=== PATIENT | male | born 1970 | race Caucasian/White ===

== ENCOUNTER → 2020-06-25 | Outpatient (CLI) | payer BC ==
[~2020-06-25] MED LIST: ASPI325T11 PO; ATOR10TA60 PO; CITA20TA6 PO; FERR325T14 PO; MELO15TA23 PO; MULT-245 PO; OMEG1CAP68 PO; cbd oil TOP
[2020-06-25 10:05] LABS: BASO # 0.1 x10^3/uL (0.0-0.2); BASO % 1 % (0-3); EOS # 0.2 x10^3/uL (0.0-0.7); EOS % 3 % (0-3); HEMATOCRIT 44.3 % (39.0-53.0); HEMOGLOBIN 15.4 g/dL (13.0-17.5); LYMPH # 1.4 x10^3/uL (1.0-4.8); LYMPH % 29 % (24-48); MEAN CORPUSCULAR HEMOGLOBIN 32 pg (25-35); MEAN CORPUSCULAR HGB CONC 35 g/dL (31-37); MEAN CORPUSCULAR VOLUME 92 fL (79-100); MONO # 0.6 x10^3/uL (0.0-1.1); MONO % 12 % (0-9); NEUT # 2.7 x10^3/uL (1.8-7.7); NEUT % 55 % (31-73); PLATELET COUNT 182 x10^3/uL (140-400); RED BLOOD COUNT 4.83 x10^6/uL (4.30-5.70); RED CELL DISTRIBUTION WIDTH 12.9 % (11.5-14.5)
[2020-06-25 10:22] LABS: ALBUMIN 3.7 g/dL (3.4-5.0); CALCIUM 8.9 mg/dL (8.5-10.1); GFR 78.5
[2020-06-25 10:34] LABS: PROTHROMBIN TIME PATIENT 13.9 SEC (11.7-14.0)
--- NOTE | 2020-06-25 11:57 | EKG ---
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
--- NOTE | 2020-06-25 16:50 | RAD ---
XR CHEST 2V History: Reason: joint prehab class patient-hx hyperlipidemia-preop eval for knee replacemen / Spl. I nstructions: / History: Comparison: None. Findings: No consolidation or pleural effusion. Normal heart size. No pneumothorax. Impression: 1. No acute cardiopulmonary process. Electronically signed by: Alexandro Humphries DO (06/25/2020 4:47 PM) [id number]
== END ==
LOC: SURGPAT 12:38
PROVIDERS: ATTEND Orthopaedic Surgery
DX: Z01.818 Encounter for other preprocedural examination (principal); M17.11 Unilateral primary osteoarthritis, right knee; E78.5 Hyperlipidemia, unspecified
CPT/HCPCS: 36415; 71046; 80048; 82040; 82306; 83036; 85025; 85610; 85730; 86140; 87641; 93005

== ENCOUNTER → 2020-07-12 | Outpatient (CLI) | payer BC | LOC: LAB 11:13 | PROVIDERS: ATTEND Orthopaedic Surgery | DX: Z01.812 Encounter for preprocedural laboratory examination (principal); M17.11 Unilateral primary osteoarthritis, right knee; Z20.822 Contact with and (suspected) exposure to COVID-19 | CPT/HCPCS: U0003 ==

== ENCOUNTER 2020-07-16 07:10 | Observation (INO) | payer BC ==
--- NOTE | 2020-07-15 12:48 | PDOC1 ---
History and Physical Date of Admission Date of Admission 07/16/2020 Identification/Chief Complaint Chief Complaint Right knee osteoarthritis pain Source Source: Chart review, Patient History of Present Illness History of Present Illness 48 year old with right knee osteoarthritis and pain, a mutual patient with Dr. SHIVANI Zhang. History of Orthovisc injections. In 2019 was still playing ultimate Frisbee and soccer, and as a result, did not want knee replacement previously. At this point, he reports that his knee pain has significantly progressed from prior. His knee pain is severe and impacting his ability to participate in desired activities or stay active. He's interested in knee replacement. He is a past patient whom I've been following for at least 7 years, with nonoperative treatment for his osteoarthritis. History of ACL reconstruction surgery in the . He states that walking is painful now. Past Medical History Cardiovascular: HTN Past Surgical History Past Surgical History ACL reconstruction Family History Family History father HTN Family History: Hypertension Social History Smoke: Quit ALCOHOL: none Current Medications Current Medications Current Medications Fentanyl Citrate (Fentanyl 2ml Vial) 25 mcg PRN Q5MIN PRN IVP MILD PAIN 1-3; Start 07/16/20 at 06:00; Stop 07/17/20 at 05:59 Fentanyl Citrate (Fentanyl 2ml Vial) 50 mcg PRN Q5MIN PRN IVP MODERATE PAIN 4- 6; Start 07/16/20 at 06:00; Stop 07/17/20 at 05:59 Morphine Sulfate (Morphine Sulfate) 1 mg PRN Q10MIN PRN IVP SEVERE PAIN 7-10; Start 07/16/20 at 06:00; Stop 07/17/20 at 05:59 Ringer's Solution 1,000 ml @ 30 mls/hr Q24H IV ; Start 07/16/20 at 06:00; Stop 07/16/20 at 17:59 Hydromorphone HCl (Dilaudid) 0.5 mg PRN Q10MIN PRN IVP SEVERE PAIN 7-10, 2nd CHOICE; Start 07/16/20 at 06:00; Stop 07/17/20 at 05:59 Prochlorperazine Edisylate (Compazine) 5 mg PACU PRN PRN IVP NAUSEA, MRX1; Start 07/16/20 at 06:00; Stop 07/17/20 at 05:59 Meloxicam (Mobic) 15 mg 1X PREOP PRN PO PRIOR TO PROCEDURE; Start 07/16/20 at 06:00; Stop 07/16/20 at 18:00 Acetaminophen (Tylenol) 1,000 mg 1X PREOP PRN PO PRIOR TO PROCEDURE; Start 07/16/20 at 06:00; Stop 07/16/20 at 18:00 Cefazolin Sodium/ Dextrose 50 ml @ 100 mls/hr 1X PREOP PRN IV PRIOR TO PROCEDURE; Start 07/16/20 at 06:00; Stop 07/16/20 at 18:00 Morphine Sulfate 5 mg/Ketorolac Tromethamine 30 mg/Ropivacaine 60 ml/Epinephrine HCl 0.5 mg/Sodium Chloride 100 ml @ 100 mls/hr 1X PERIOP ONCE INT ART ; Start 07/16/20 at 06:00; Stop 07/16/20 at 06:59 Tranexamic Acid 50 ml @ 50 mls/hr 1X PERIOP ONCE INJ ; Start 07/16/20 at 06:00; Stop 07/16/20 at 06:59 Tranexamic Acid 50 ml @ 50 mls/hr 1X PERIOP ONCE INJ ; Start 07/16/20 at 08:00; Stop 07/16/20 at 08:59 Aspirin (Bautista Aspirin) 325 mg BID PO ; Start 07/16/20 at 21:00 Active Scripts Active Reported Multi Vitamin Daily (Multivitamin) 1 Each Tablet 1 Each PO DAILY [cbd oil] 1 Tate TOP PRN DAILY PRN Fish Oil 500 Mg Softgel (Charlotte-3/Dha/Epa/Fish Oil) 1 Each Capsule 1 Each PO DAILY Atorvastatin Calcium 10 Mg Tablet 10 Mg PO HS PRN Citalopram Hbr (Citalopram Hydrobromide) 20 Mg Tablet 20 Mg PO DAILY Allergies Allergies: Coded Allergies: celecoxib (Verified Adverse Reaction, Intermediate, Itching, 06/27/20) ROS Review of System OPHTHALMOLOGY: Blurred vision none. Double vision denies. Change in vision none. ENT: Hearing loss none. Change in voice denies. Rhinorrhea none. CARDIOLOGY: Palpitations none. Shortness of breath denies. Chest pain denies. CONSTITUTIONAL: Fever denies. Chills denies. Weight gain denies. Weakness none. weight loss denies. Fatigue none. GASTROENTEROLOGY: Diarrhea denies. Vomiting none. Dysphagia none. UROLOGY: Voiding normally yes. Hematuria none. MUSCULOSKELETAL: Chronic back or neck pain denies. Swelling of the feet, hands, ankles and /or legs denies. Joint pain reports. Tingling/numbness no. DERMATOLOGY: Rash denies. Lumps none. NEUROLOGY: Dizziness/lightheadedness denies. Double vision, temporary blindness denies. Tingling/numbness none. PSYCHOLOGY: Change in mood or personality denies. Memory loss none. ENDOCRINOLOGY: Obesity denies. Fatigue none. Weight loss none. HEMATOLOGY/LYMPH: Hepatitis denies. Enlarged lymph nodes denies. Physical Exam General: Alert, Cooperative HEENT: Atraumatic Lungs: Normal air movement Heart: RRR Abdomen: Soft Extremities: No cyanosis, No edema, Normal pulses, Other (The RIGHT knee shows a mildly antalgic gait. There is varus malalignment. No masses. No detectable effusion. Tenderness on the joint lines. Range of motion is 0-120 degrees. There is crepitus with range of motion, and pain at the extremes of motion. The knee is stable to varus and valgus stress without subluxation or laxity. Muscle strength is slightly weak for the quadriceps 4+/5 which may be due to pain or avoidance, and does not seem neurogenic, and the muscle tone and bulk is slightly decreased. The hamstring strength is 5/5. The skin shows a well healed anterior scar from past ACL reconstruction but is otherwise normal with no other scars, rashes, lesions or ulcers. Light touch sensation is intact. No edema and no varicosities. Dorsalis pedis pulse is intact and capillary refill is normal. ) Skin: No breakdown, No significant lesion Neuro: Normal speech, Sensation intact Images Images Imaging: Knee 3 VWS, right Notes :IRVIN PAREDES 06/19/2020 01:18:55 PM EXPLOSIVE OPERATOR FUSE > Report reviewed and images independently reviewed. The right knee has [id number] contact medially with osteophyte formation, sclerosis, varus malalignment, possible deformity of bone contour of the medial tibia, and osteophytes are present in all 3 compartments. There are retained metallic interference screws in the femur and tibia consistent with two-incision anterior cruciate ligament reconstruction. This appears to be posttraumatic osteoarthritis of the left knee has very mild degenerative changes. These are Kellgren-Jasper grade 3 osteoarthritis changes of the right knee. [facility] [address] [place] [address] IMAGING REPORT Signed PATIENT: OTNA BENOIT ACCOUNT: [id number] : 1970 LOCATION: [facility] AGE: 50 SEX: M EXAM STATUS: PRE CLI ORD. PHYSICIAN: IRVIN PAREDES MD REASON: RT KNEE PAIN PROCEDURE: KNEE STANDING BILAT AP XR KNEE_RT 1-2 VIEWS, XR KNEE_AP BILAT STANDING 06/14/2020 10:50 AM INDICATION: Right knee pain COMPARISON: 04/25/2019 TECHNIQUE: 3 views of the right knee including a standing comparison view of the left knee provided. FINDINGS/ IMPRESSION: 1. No acute fracture or dislocation. 2. ACL repair postsurgical changes are identified. No significant lucency surrounding the hardware. Hardware appears in similar position compared to prior examination from 04/25/2019. 3. There is severe medial femorotibial joint space narrowing with marginal osteophytosis and subcortical sclerosis compatible with severe osteoarthrosis. Mild lateral femorotibial joint space narrowing and mild patellofemoral osteoarthrosis. Findings are stable. 4. Mild medial femorotibial joint space narrowing of the left knee compatible with mild osteoarthrosis. Electronically signed by: Pascual Wade MD (06/14/2020 5:15 PM) [id number] DICTATED and SIGNED BY: PASCUAL WADE MD DATE: 06/14/20 1713 VTE Prophylaxis Ordered VTE Prophylaxis Devices: Yes VTE Pharmacological Prophylaxi: Yes Assessment/Plan Assessment/Plan Post-traumatic osteoarthritis of right knee - M17.31 He has severe osteoarthritis of the right knee, which is posttraumatic and he has a history of ACL reconstruction of this right knee with retained hardware. There are qclv-fj-vsyq changes. He has tried nonoperative treatment including Orthovisc injections and other nonoperative treatment. Despite that he has daily symptoms. We reviewed his x-rays together and discussed the natural history of the condition as well as the risks, benefits, and alternatives to treatment. Given his failure of more conservative measures with continued severe pain and loss of function, my recommendation is surgery. Plan for right total knee arthroplasty. We discussed the potential risks of infection, neurovascular injury, fracture, bleeding, blood clots, malalignment, need for revision surgery, or other potential surgical or anesthetic complications. I recommended the robotic instrumentation and we discussed my reasoning. In addition, we went over his need for dental antibiotic prophylaxis, as well as postoperative expectations including residual numbness and his possible eventual need for revision at his younger age. All of his questions were answered and he desires to proceed with total knee replacement. Justifications for Admission Other Justification IRVIN PAREDES MD Jul 15, 2020 12:48
[~2020-07-16] VITALS: Ht 180.3 cm; Wt 93.9 kg
[~2020-07-16 07:10] MED LIST changes: +ACETAMINOPHEN 500 MG TABLET PO PRN; -ASPI325T11 PO; +BUPIVACAINE-EPI 0.25% 30 ML VIAL KIT. ONE; -FERR325T14 PO; +HYDROmorphone 2 MG/ML VIAL IVP PRN; +IV RINGERS,LACTATED 1000ML 1,000 ML IV SCH; -MELO15TA23 PO; +MELOXICAM 7.5 MG TABLET PO PRN; +MORPHINE SULFATE 2 MG/ML VIAL. IVP PRN; +PROCHLORPERAZINE 10 MG/2 ML VIAL. IVP PRN; +TOBRAMYCIN POWDER 1.2 GM VIAL. ONE; +TRANEXAMIC ACID 1,000 MG in IV NS 50ML -- 1ST BAG INJ ONE; +TRANEXAMIC ACID in NS IVPB 50 ML ONE; +TV=100ml MORPHINE 5 MG, KETOROLAC 30 MG, ROPIVacaine 0.5% PF 60 ML, EPINEPH... INT ART ONE; +VANCOMYCIN 1 GM VIAL. ONE; +fentaNYL PF VIAL 100 MCG/2 ML VIAL IVP PRN
[2020-07-16] MEDS ORDERED: FERR325T14 PO (07:40)
[2020-07-16] MEDS ORDERED: MELO15TA23 PO (07:41)
[2020-07-16] MEDS ORDERED: TRANEXAMIC ACID 1,000 MG in IV NS 50ML -- 2ND BAG INJ ONE (08:00)
[2020-07-16] MEDS ORDERED: VANCOMYCIN 1 GM VIAL. ONE (08:40)
[2020-07-16] MEDS ORDERED: fentaNYL PF VIAL 250 MCG/5 ML VIAL ONE (08:52)
[2020-07-16] MEDS ORDERED: PROPOFOL 10 MG/ML (20ML) VIAL. IV ONE (08:52)
[2020-07-16] MEDS ORDERED: LIDOCAINE 2% PF 5 ML VIAL. ONE (08:52)
[2020-07-16] MEDS ORDERED: DEXAMETHASONE SOD PHOS 4 MG/ML VIAL ONE (08:56)
[2020-07-16] MEDS ORDERED: ONDANSETRON PF 4 MG/2 ML VIAL. ONE (08:56)
[2020-07-16] MEDS ORDERED: TRANEXAMIC ACID in NS IVPB 50 ML ONE (11:16)
[2020-07-16] MEDS ORDERED: HYDROmorphone 2 MG/ML VIAL ONE (11:30)
[2020-07-16] MEDS ORDERED: SEVOFLURANE > 120 MINUTES. IH ONE (11:30)
--- NOTE | 2020-07-16 12:07 | PDOC4 ---
Operative Note Operative Note Date of Procedure: July 16, 2020 Pre-Op Diagnosis: Post-traumatic osteoarthritis of right knee - M17.31 Post-Op Diagnosis: same Procedure: right total knee arthroplasty with patella resurfacing, robotic assisted, and hardware removal CPT 96375 Surgeon: Irvin Petersen MD School Psychology Professor: KAYLA Albarado Anesthesia: General EBL: 150 mL Specimens Obtained: right knee bone and soft tissue Complications: none Drains: none Tourniquet time: 88 Minutes Tourniquet Pressure: 300 mm Hg Indications for Procedure: Knee arthritis pain, affecting quality of life, unrelieved by nonoperative management Findings: Severe osteoarthritis with bone on bone contact medially with full thickness cartilage loss in the patellofemoral and lateral compartments, retained tibial screw from ACL surgery required removal for placement of the tibial implant. The femoral ACL interference screw was never seen and is retained. Implants: Gomez [employer] Nephew Journey II Total Knee System, Size 5 right bicruciate stabilized Journey II BCS Oxinium femoral component, size 5 right Journey nonporous tibial baseplate, size 5-6 12 mm right Journey II BCS XLPE articular insert, 35 mm oval Suzanne II resurfacing patellar component Procedure in Detail: The patient was identified in the preoperative holding area, and the correct right lower extremity was marked by me. The patient was taken to the operating room where the patient was anesthetized by the Department of Anesthesia. Preoperative antibiotics were given intravenously. Tranexamic acid 1 g was given intravenously for intraoperative hemostasis. A "time-out" procedure was performed. The patient was positioned supine on the operative table with a tourniquet on the upper right thigh. A right hip bump and heel bump were attached to the operating table for later intraoperative positioning. The right lower limb was thoroughly scrubbed, then sterile Chloraprep solution was applied, and the limb was draped in sterile fashion. The operating team wore exhaust ventilated hoods with [employer] Personal Protection Toga Zippered Peel-Away protection system. An impervious stockinet and an adhesive drape were used such that the skin was entirely covered. The limb was exsanguinated with an Esmarch bandage, and the tourniquet was inflated. A midline skin incision was made with a scalpel using the patella and tibial tubercle as landmarks. Electrocautery was used for hemostasis. My drafter assistant used rake retractors and a laparotomy sponge. A medial parapatellar arthrotomy incision was used with extension into the distal quadriceps tendon. The patella was retracted laterally and Hohmann retractors were now used by my drafter assistant. Excess synovium, the menisci, and the cruciate ligaments were resected sharply. A periarticular multimodal ropivacaine anesthetic injection was used in the suprapatellar pouch and distal quadriceps muscle. The patella was everted and exposed. The patella thickness was measured with a caliper, and then cut freehand with a saw, using caliper measurements to assess the resection. The lateral retinaculum was partially released from the lateral patella using electrocautery. Rongeurs were used to make sure there were no remaining exposed patellar osteophytes medially or laterally. The patella was sized, and then drilled for an oval three-peg patella component. The tibial tracker array for the CORI system was applied to the tibial crest four finger breadths below the tibial tubercle, using percutaneous incisions and bicortical pins. The femoral tracker array was applied outside of the original incision using two separate stab incisions using bicortical pins. Checkpoint verification pins were applied to the femur and tibia. Using the point probe, the medial and lateral malleoli were localized and the locations were stored. The center of the tibia was noted at the anterior cruciate ligament insertion and stored. The center of the femur was marked at the intersection of Whitesidess line with the transepicondylar axis. The hip center calculation was performed with range of motion of the hip. The femur neutral position was identified, and simulated weightbearing was performed with axial compression on the foot. Range of motion without stress was performed and the data collected. Range of motion with valgus stress, and range of motion with varus stress data collection was also performed. Rotational references include the Whitesidess line, and the trans-epicondylar axis. The femoral articular surface was now mapped in 3 dimensions using the point probe and digital data collected. The tibial condyle articular surfaces and cortical edges were mapped in 3 dimensions using the point probe including the medial and lateral tibial plateau. Implant planning was now performed on-screen with manipulation of the implant sizes, cut thicknesses and gaps, component rotation, component flexion/extension and component varus/valgus until satisfactory ligament balance, alignment and stability of the knee was expected throughout the range of motion. A medial release was required, using a 10 blade scalpel, and a Woodward elevator to elevate the medial structures from the upper medial tibia. The medial release was performed in two stages to achieve satisfactory coronal plane balance according to the stress testing on the CORI. My drafter assistant held a Hohmann retractor, a medial Z-retractor, and an [place] retractor to protect the medial and lateral collateral ligaments, the patellar tendon, the skin and the other soft tissues. The point probe was used to confirm the location of the checkpoint verification pins. The distal femoral surface was now prepared using CORI handpiece for bone removal to the previously planned distal femoral resection. The crosshairs at the pin locations were marked by using a mallet and the point probe for definitive location. A 5-in-1 Journey II cutting guide was then applied and the position was checked with the virtual neil wing from the CORI to ensure proper placement as the pins were applied. The posterior, anterior, and all chamfer cuts were made with the oscillating saw. Excess bone was removed with an osteotome and rongeurs. The tibial cutting guide was applied, positioned using the CORI virtual neil wing, and secured to the upper tibia using three pins at the previously planned location. The virtual neil wing was used to confirm the resection depth, slope and coronal alignment. The upper tibia was cut made with an oscillating saw. My drafter assistant held Hohmann retractors and a posterior cruciate ligament retractor to protect the medial and lateral collateral ligaments, the patellar tendon, the skin, the peroneal nerve and the other soft tissues. The tibial interference screw tip was now exposed, and would interfere with placement of the tibial implant. I used a K wire and a nitinol wire, from the joint surface, through the tip of the screw, to localize the distal cortical insertion point of the screw. An osteotome was used at that cortex location, and the screw head was exposed. A screwdriver was then used over the K-wire, and as the screwdriver was inserted into the screw, the screw loosened and came loose from the bone and was finally removed. The screw removal procedure took about 20 minutes. The upper tibia was sized with a trial baseplate. The posterior compartment was cleared of osteophytes and loose bodies. The periarticular anesthetic injection was used in the posterior compartment. The box cut for a posterior stabilized component was made. A preliminary reduction was performed with a trial femur, trial tibial baseplate and trial polyethylene. The CORI system was used to confirm range of motion, and postoperative stressed gap assessment. The stability was assessed using different thicknesses of tibial articular surface to find satisfactory stability and good range of motion. The rotation of the tibial component was marked on the upper tibia. Final trial reduction was now performed verifying patella tracking and tibiofemoral stability and alignment. The bone pins and tracker arrays were removed, and the checkpoint verification pins were removed. The tibia preparation was completed with a drill, saw, and fin punch at the previously noted rotation. The final implants were verified and opened. Outer gloves were changed by the operating team. Betadine lavage was used. The bone cuts were irrigated with saline using the ThrowMotion InterPulse device and then dried with suction and laparotomy sponges. Two packages of Gomez + Nephew Rally HV bone cement were mixed in powdered form with Vancomycin 1gm and Tobramycin 1.2 gm, and then vacuum-mixed with the monomer, and placed into a cement gun. The cut surfaces of the bone were thoroughly dried with suction and with laparotomy sponges for cement interdigitation. The final components were cemented into place. Laparotomy sponge was held over the anterior tibial defect from the screw removal, to maintain cement pressure in this location and maintain a soft flat cement contour along the anterior tibial defect. The knee was kept at full extension while the cement hardened, and excess cement was removed. Tranexamic acid 1 g was redosed intravenously for additional intraoperative hemostasis. The tourniquet was released, and electrocautery was used for hemostasis. A final periarticular anesthetic injection was used for pain relief. The bone pin sites on the tibial crest were closed with #3-0 Nylon sutures. A final check of [id number] and stability was made, and the polyethylene implant final size was chosen. The polyethylene implant was secured to the tibial baseplate, and the knee was reduced a final time and range of motion and stability was confirmed. Thorough irrigation was used. Topical Vancomycin 1 gm was used during the closure. The arthrotomy was closed with interrupted vmlyet-ro-fyuot #1 Vicryl suture. The subcutaneous tissues were approximated initially with #2-0 Vicryl inverted interrupted sutures by my drafter assistant. Next the subcuticular layer was approximated in a running fashion with #3-0 STRATAFIX suture by my drafter assistant. The skin incision was then covered and reinforced by my drafter assistant with Acticoat, followed by a DANIAL single use negative pressure wound therapy dressing Soft roll and an Miguel wrap were applied. Needle and sponge counts were correct. There were no apparent complications. The patient returned to the recovery room in stable condition. IRVIN PETERSEN MD Jul 16, 2020 12:07
[2020-07-16] MEDS ORDERED: PROCHLORPERAZINE 5 MG TABLET. PO PRN (12:15)
[2020-07-16] MEDS ORDERED: CALCIUM CARBONATE 500 MG TAB.CHEW PO PRN (12:15)
[2020-07-16] MEDS ORDERED: DEXTROSE 50% 25 GM / 50ML DISP.SYRIN. IV PRN (12:15)
[2020-07-16] MEDS ORDERED: 0.9 % SODIUM CHLORIDE 10 ML DISP.SYRIN. IV PRN (12:15)
[2020-07-16] MEDS ORDERED: MORPHINE SULFATE 4 MG/ML VIAL. IVP PRN (12:15)
[2020-07-16] MEDS ORDERED: ZOLPIDEM 5 MG TABLET. PO PRN (12:15)
[2020-07-16] MEDS ORDERED: IV NORMAL SALINE 1000ML BAG 1,000 ML IV SCH (12:15)
[2020-07-16] MEDS ORDERED: fentaNYL PF VIAL 100 MCG/2 ML VIAL IVP PRN (12:15)
[2020-07-16] MEDS ORDERED: METOCLOPRAMIDE HCL 10 MG/2 ML VIAL. IVP PRN (12:15)
[2020-07-16] MEDS ORDERED: diphenhydrAMINE 50 MG/ML VIAL IVP PRN (12:15)
[2020-07-16] MEDS ORDERED: oxyCODONE/APAP 5/325 1 TAB TABLET PO PRN (12:45)
--- NOTE | 2020-07-16 12:56 | RAD ---
EXAM: Right knee, 2 views. HISTORY: Arthroplasty. COMPARISON: 06/14/2020 FINDINGS: 2 views of the right knee are obtained. There is a right knee arthroplasty in expected posi tion. There are track sullivan within the distal femur and proximal tibia due to prior instrumentation. There is soft tissue gas and a joint effusion due to recent surgery. There is a corticated ossicle al nasreen the superior aspect of the anterior tibial tubercle likely due to prior anterior cruciate ligamen t surgery. There is enthesopathy along the patella. IMPRESSION: Right knee arthroplasty in expected position. Electronically signed by: Sarah Moore MD (07/16/2020 12:54 PM) [id number]
[2020-07-16 14:01] VITALS: BP 133/87
--- NOTE | 2020-07-16 14:18 | NUR ---
received from recovery. he is alert and oriented . at bedside. he has good motion, sensation and pulses lower extremities. he denies pain at this time ; maybe a "1".
[2020-07-16 14:30] VITALS: BP 105/66
[2020-07-16 15:00] VITALS: BP 108/69
[2020-07-16 15:30] VITALS: BP 112/68
--- NOTE | 2020-07-16 16:04 | NUR ---
[facility] was down again--please see paper chart for medications
[2020-07-16 19:00] VITALS: BP 127/76
[2020-07-16] MEDS: ASPIRIN 325 MG TABLET PO SCH (20:46)
[2020-07-16] MEDS: ASPIRIN ENTERIC COATED 325 MG TABLET.DR. PO SCH (20:47)
[2020-07-16] MEDS: ONDANSETRON ODT 4 MG TAB.RAPDIS. PO SCH (20:47)
[2020-07-16] MEDS: ONDANSETRON PF 4 MG/2 ML VIAL. IVP SCH (20:47)
[2020-07-16] MEDS: oxyCODONE/APAP 5/325 1 TAB TABLET PO PRN (21:57)
[2020-07-16 22:40] VITALS: BP 110/73
[2020-07-17 03:00] VITALS: BP 122/65
[2020-07-17] MEDS: oxyCODONE/APAP 5/325 1 TAB TABLET PO PRN ×2 (03:59→20:24)
[2020-07-17] MEDS: ONDANSETRON ODT 4 MG TAB.RAPDIS. PO SCH ×2 (04:00)
[2020-07-17] MEDS: ONDANSETRON PF 4 MG/2 ML VIAL. IVP SCH ×2 (04:00)
[2020-07-17] MEDS ORDERED: MAGNESIUM HYDROXIDE 2,400 MG/30 ML ORAL.SUSP. PO PRN (06:00)
[2020-07-17 09:59] LABS: HEMOGLOBIN 13.7 g/dL (13.0-17.5)
[2020-07-17] MEDS ORDERED: IV NORMAL SALINE 500ML BAG 500 ML IV ONE (10:30)
[2020-07-17 11:05] VITALS: BP 105/71
[2020-07-17] MEDS ORDERED: ONDANSETRON PF 4 MG/2 ML VIAL. IVP PRN (12:00)
[2020-07-17] MEDS ORDERED: ONDANSETRON ODT 4 MG TAB.RAPDIS. PO PRN (12:00)
[2020-07-17] MEDS ORDERED: IV NORMAL SALINE 1000ML BAG 1,000 ML IV SCH (13:00)
--- NOTE | 2020-07-17 13:58 | RAD ---
EXAM: Right lower extremity venous Doppler sonogram. HISTORY: Pain and swelling. TECHNIQUE: Cuevas scale and color Doppler sonographic evaluation of the right lower extremity veins wit h spectral waveform analysis was performed. FINDINGS: There is normal color flow, normal compressibility and there are normal spectral waveforms in the common femoral, superficial femoral, popliteal, posterior tibial and greater saphenous veins. IMPRESSION: No Doppler evidence of lower extremity deep venous thrombosis. Electronically signed by: Sarah Moore MD (07/17/2020 1:56 PM) [id number]
--- NOTE | 2020-07-17 14:28 | NUR ---
[facility] see [facility] chart for todays' assessments, medications and vs and activities
[2020-07-17 15:15] VITALS: BP 120/69
--- NOTE | 2020-07-17 15:48 | EKG ---
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
[2020-07-17] MEDS ORDERED: BISACODYL 10 MG SUPP.RECT. PR PRN (16:00)
[2020-07-17] MEDS ORDERED: FLU VACC QS 2020-21(6MOS+)/PF 0.5 ML SYRINGE. VAX IM ONE (17:00)
[2020-07-17 18:11] VITALS: BP 154/77
[2020-07-17] MEDS: ASPIRIN 325 MG TABLET PO SCH (20:14)
[2020-07-17] MEDS: ASPIRIN ENTERIC COATED 325 MG TABLET.DR. PO SCH (20:15)
[2020-07-18] MEDS: oxyCODONE/APAP 5/325 1 TAB TABLET PO PRN ×4 (00:27→13:22)
[2020-07-18 06:18] VITALS: BP 124/74
--- NOTE | 2020-07-18 08:25 | NUR ---
Doing well this am. No c/o dizziness or light headiness. BP this am 145/82 with heart rate 79. Tolerated breakfast and drinking plenty of fluids. Cont. monitor.
[2020-07-18] MEDS: CITALOPRAM 20 MG TABLET. PO SCH ×2 (08:45→08:51)
[2020-07-18] MEDS: MULTIVITAMIN with MINERAL TABLET. PO SCH ×2 (08:50→08:51)
[2020-07-18] MEDS: MELOXICAM 7.5 MG TABLET PO SCH ×3 (08:50→15:12)
[2020-07-18] MEDS: ATORVASTATIN CALCIUM 10 MG TABLET. PO SCH ×2 (08:51→15:11)
[2020-07-18] MEDS: SENNOSIDES/DOCUSATE 8.6/50MG TABLET. PO SCH ×2 (08:51→15:10)
[2020-07-18] MEDS: ASPIRIN 325 MG TABLET PO SCH (08:52)
[2020-07-18 10:33] LABS: HEMATOCRIT 39.5 % (39.0-53.0); HEMOGLOBIN 13.8 g/dL (13.0-17.5)
--- NOTE | 2020-07-18 13:54 | PDOC ---
PROGRESS NOTES Date of Service DATE: 07/18/20 TIME: 13:51 Subjective Subjective Notes yesterday were on paper due to [employer] being down. He had a syncopal episode yesterday. He feels well today. Doppler was negative for DVT. Objective Vital Signs Vital Signs Date Time Temp Pulse Resp B/P (MAP) Pulse Ox O2 Delivery O2 Flow Rate FiO2 07/18/20 13:22 Room Air 07/18/20 06:18 98.7 78 16 124/74 (91) 96 98.7 07/16/20 12:50 10 Physical Exam Calf soft and nontender. Spotty dressing only on the DANIAL. Active range of motion 15 to 90 degrees. Labs Laboratory Tests Test 07/17/20 09:30 07/18/20 09:30 Hemoglobin 13.7 g/dL (13.0-17.5) 13.8 g/dL (13.0-17.5) Hematocrit 39.0 % (39.0-53.0) 39.5 % (39.0-53.0) Mean Corpuscular Hemoglobin Concent 35 g/dL (31-37) 35 g/dL (31-37) Laboratory Tests Test 07/18/20 09:30 Hemoglobin 13.8 g/dL (13.0-17.5) Hematocrit 39.5 % (39.0-53.0) Mean Corpuscular Hemoglobin Concent 35 g/dL (31-37) Imaging Report reviewed and images independently reviewed. Satisfactory TKA without complications. [facility] [address] [place] [address] IMAGING REPORT Signed PATIENT: TONA BENOIT ACCOUNT: [id number] : 1970 LOCATION: SURG AGE: 50 SEX: M EXAM STATUS: REG [facility] [facility]. PHYSICIAN: IRVIN PAREDES MD REASON: POST OP PROCEDURE: KNEE RIGHT 2V EXAM: Right knee, 2 views. HISTORY: Arthroplasty. COMPARISON: 06/14/2020 FINDINGS: 2 views of the right knee are obtained. There is a right knee arthroplasty in expected position. There are track sullivan within the distal femur and proximal tibia due to prior instrumentation. There is soft tissue gas and a joint effusion due to recent surgery. There is a corticated ossicle along the superior aspect of the anterior tibial tubercle likely due to prior anterior cruciate ligament surgery. There is enthesopathy along the patella. IMPRESSION: Right knee arthroplasty in expected position. Electronically signed by: Sarah Ordonez MD (07/16/2020 12:54 PM) [email or web address] DICTATED and SIGNED BY: SARAH ORDONEZ MD DATE: 07/16/20 [id number] PATIENT: TONA BENOIT ACCOUNT: [id number] : 1970 LOCATION: [address] [place] [address] AGE: 50 SEX: M EXAM STATUS: ADM IN ORD. PHYSICIAN: IRVIN PAREDES MD REASON: RT LEG SWELLING; S/P RT KNEE REPLACEMENT 05/15/21 PROCEDURE: VENOUS LOWER EXTREMITY RIGHT EXAM: Right lower extremity venous Doppler sonogram. HISTORY: Pain and swelling. TECHNIQUE: Cuevas scale and color Doppler sonographic evaluation of the right lower extremity veins with spectral waveform analysis was performed. FINDINGS: There is normal color flow, normal compressibility and there are normal spectral waveforms in the common femoral, superficial femoral, popliteal, posterior tibial and greater saphenous veins. IMPRESSION: No Doppler evidence of lower extremity deep venous thrombosis. Electronically signed by: Sarah Ordonez MD (07/17/2020 1:56 PM) [email or web address] DICTATED and SIGNED BY: SARAH ORDONEZ MD DATE: 07/17/20 [id number] 0 Assessment Assessment POD#2 after total knee arthroplasty. Syncopal episode yesterday but feels well today. Plan Plan of Care Doing well. Discharge to home today. Outpatient physical therapy. Aspirin for DVT prophylaxis. Office follow-up next week. Justicifation of Admission Dx: Justifications for Admission: Justification of Admission Dx: N/A IRVIN PAREDES MD Jul 18, 2020 13:54
--- NOTE | 2020-07-18 13:59 | PDOC3 ---
Discharge Summary Visit Information Date of Admission: Jul 16, 2020 Date of Discharge: Jul 18, 2020 Final Diagnosis Unilateral traumatic osteoarthritis right knee Brief Hospital Course Allergies Allergies Coded Allergies Type Severity Reaction Last Updated Verified celecoxib Adverse Reaction Intermediate Itching 06/27/20 Yes Vital Signs Vital Signs Date Time Temp Pulse Resp B/P (MAP) Pulse Ox O2 Delivery O2 Flow Rate FiO2 07/18/20 13:22 Room Air 07/18/20 06:18 98.7 78 16 124/74 (91) 96 98.7 Lab Results Laboratory Tests Test 07/17/20 09:30 07/18/20 09:30 Hemoglobin 13.7 g/dL (13.0-17.5) 13.8 g/dL (13.0-17.5) Hematocrit 39.0 % (39.0-53.0) 39.5 % (39.0-53.0) Mean Corpuscular Hemoglobin Concent 35 g/dL (31-37) 35 g/dL (31-37) Laboratory Tests Test 07/18/20 09:30 Hemoglobin 13.8 g/dL (13.0-17.5) Hematocrit 39.5 % (39.0-53.0) Mean Corpuscular Hemoglobin Concent 35 g/dL (31-37) Brief Hospital Course [] year old who presented with knee osteoarthritis, for elective total knee arthroplasty. The patient underwent total knee arthroplasty under general anesthesia the day of admission. Perioperative antibiotics and DVT prophylaxis were used. Postoperatively physical therapy and case management were consulted. The patient progressed and is stable for discharge. Discharge Information Condition at Discharge: Stable Follow Up: Weeks Disposition/Orders: D/C to Home Scheduled Citalopram Hydrobromide (Citalopram Hbr), 20 MG PO DAILY, (Reported) Ferrous Sulfate (Ferrous Sulfate), 1 TAB PO DAILY, (Reported) Meloxicam (Meloxicam), 1 TAB PO ONCE, (Reported) Multivitamin (Multi Vitamin Daily), 1 EACH PO DAILY, (Reported) [place]-3/Dha/Epa/Fish Oil (Fish Oil 500 Mg Softgel), 1 EACH PO DAILY, (Reported) Scheduled PRN Atorvastatin Calcium (Atorvastatin Calcium), 10 MG PO HS PRN for treat hyperlipidemia, (Reported) [cbd oil], 1 ARTEMIO TOP PRN DAILY PRN for pain control, (Reported) Patient Instructions Patient Instructions Continue to weight bearing as tolerated with walker. Keep DANIAL dressing intact and dry. Cut off DANIAL "tail" and throw away battery pack on the 7th day after surgery. Tape down DANIAL tail Leave DANIAL dressing intact otherwise. Follow up with Dr. Petersen's office07/24. Call for appointment unless already scheduled. Continue enteric coated aspirin 325 mg by mouth twice a day for 30 days to prevent blood clots. Justicifation of Admission Dx: Justifications for Admission: Justification of Admission Dx: N/A IRVIN PETERSEN MD Jul 18, 2020 13:59
--- NOTE | 2020-07-18 14:12 | PATHOLOGY ---
[facility] Accession Number: [id number] . 01 Material submitted: . knee - RIGHT KNEE BONE AND TISSUE. Modifiers: right . 01 Clinical history: . OSTEOARTHRITIS RIGHT T U A W/ROBOTIC ASSIST . 02 Diagnosis: Segments of bone and soft tissue, robotic assisted right total knee arthroplasty: - Advanced degenerative arthritis. (JPM:home care administrator; 07/18/2020) MBR 07/18/2020 1157 Local . 02 Electronically signed: . Francis Rendon MD, Pathologist NPI- [id number] . 01 Gross description: . The specimen is received in formalin, labeled "Cj Miner, Courtney knee bone and tissue". Received are multiple segments of bone, including the tibial plateau, measuring 9.8 x 8.8 x 3.9 cm in aggregate dimensions. Meniscus is absent. The articular surfaces are smooth to granular in appearance with evidence of eburnation. The specimen is submitted representatively in cassette A1, following decalcification. (CAA; 07/17/2020) QA/[facility] 07/17/2020 1258 Local . 02 Pathologist provided ICD-10: M17.11 . 02 CPT . 351390, 134533 Specimen Comment: A courtesy copy of this report has been sent to [phone] Specimen Comment: Report sent to Performed at: 01 [facility] [address], [place] [id number] MD Rex Gann MD Phone: [phone] Performed at: 02 [facility] [address], [place] [id number] MD Francis Rendon MD Phone: [phone]
[2020-07-18] MEDS ORDERED: ASPI325T11 PO (14:22)
--- NOTE | 2020-07-18 16:05 | NUR ---
Discharge instructions given with prescription. Answered questions and concerns. Verbalized understanding. Pt discharged home accompanied by spouse. Escorted out by w/c.
== END 2020-07-18 16:05 | disposition home or self-care (01) ==
LOC: SURG 07:10 → 4 SOUTHEST 12:12
PROVIDERS: ADMIT Orthopaedic Surgery; ATTEND Orthopaedic Surgery
DX: M17.31 Unilateral post-traumatic osteoarthritis, right knee (principal); I10 Essential (primary) hypertension; M79.604 Pain in right leg; Z79.82 Long term (current) use of aspirin; Z87.891 Personal history of nicotine dependence; Z23 Encounter for immunization
CPT/HCPCS: 27447; 36415; 73560; 85014; 85018; 86850; 86900; 86901; 88304; 88311; 90471; 90686; 93005; 93971; 96361; 96365; 96366; 97116; 97150; 97162; 97165; 97530; 97535; G0378; G0379; J0171; J0690; J1100; J1170; J1885; J2270; J2405; J2704; J2795; J3010; J3260; J3370; J7030; C1713; J7120; A4461; C1769